=== PATIENT | female | born 1960 | race Caucasian/White ===

== ENCOUNTER 2016-12-25 14:00 | Inpatient (IN) | payer MEDICARE, MEDICAID ==
[~2016-12-25] VITALS: Ht 167.6 cm; Wt 56.1 kg
[2016-12-25 14:02] VITALS: BP 139/71; PULSE 66; RESP 18; O2SAT 100
--- NOTE | 2016-12-25 14:05 | ED.REPORT ---
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 Sister reports that the patient has been experiencing left leg pain for several months. Yesterday she developed decreased LOC, began leaning to the left, and has been unable to speak since. After getting out of the car upon returning home from an outing yesterday, the patient took several steps, then seemed to have difficulty ambulating and would not move any further, requiring the sister to move her manually. This morning, the leftward leaning seems to have worsened, and she began to have a recurrence of erratic limb movements, which have been present for some time now. Sister also reports decreased fluid intake for the past few days. She denies fever, SOB, vomiting, abdominal pain, history of seizures, and recent medication changes. It is impossible to obtain any history from the patient due to her underlying mental disability. Nursing Notes Stated Complaint: LEFT SIDED WEAKNESS Chief Complaint: Neuro Symptoms/ Deficits Nursing Notes Reviewed: Yes Allergies: Coded Allergies: No Known Allergies (Unverified , 12/25/16) General Time Seen by Provider: 14:00 Chief Complaint Other (Leaning Left) Hx Obtained From: Other family... (Sister) Arrived By: Ambulance Sudden in Onset?: No Onset Occurred: Yesterday Symptom Duration: Since onset Similar Sx Previous: No Past Medical History Past Medical History Notes: Medications: Levothyroxine 75mcg daily Lamotrigine 25mg tid (2 morning, 1 evening) Olanzapine 10mg daily Fluoxetine HCL 20mg daily Clonazepam 0.5mg up to tid Past Medical History Mentally disabled Blind Smoking History Unknown if Ever Smoker Social History Other Social History: Good social support Review of Systems Unable to Obtain ROS Mental status Physical Exam Initial Vital Signs Vital Signs (First) Date Time Temp Pulse Resp B/P Pulse Ox O2 Delivery O2 Flow Rate FiO2 12/25/16 14:02 36.6 66 18 139/71 100 Room Air Initial VS: Reviewed Neck: Supple, Non-tender, Full range of motion Extremities: Vascular intact, Neuro intact, No swelling, No tenderness Skin: Warm, Dry, No cyanosis General/Constitutional: Awake, Alert Head / Eyes: Normocephalic Respiratory / Chest: Breath sounds NL, Breath sounds = bilat, No respiratory distress, No rales, No rhonchi, No wheezing Cardiovascular: Heart rate NL, Regular rhythm, Heart sounds NL, Peripheral circulation NL NEUROLOGICAL: Unable to evaluate due to patient noncompliance. Interpretation & Diagnostics Lab Results Interpretation Result Diagram: 12/25/16 1420 12/25/16 1420 Test 12/25/16 14:20 12/25/16 17:00 White Blood Count 4.3th/mm3 (3.8-10.1) Red Blood Count 4.68mil/mm3 (3.90-5.20) Hemoglobin 13.6g/dL (12.0-15.6) Hematocrit 39.0% (35.0-46.0) Mean Corpuscular Volume 83.3fL (81-100) Mean Corpuscular Hemoglobin 29.1pg (27.0-35.0) Mean Corpuscular Hemoglobin Concent 34.9% (32.0-37.0) Red Cell Distribution Width 13.6% (12.3-15.4) Platelet Count 162bil/L (150-400) Neutrophils (%) (Auto) 55.6% (40-74) Lymphocytes (%) (Auto) 31.3% (14-46) Monocytes (%) (Auto) 11.3% (4-12) Eosinophils (%) (Auto) 1.4% (0-5) Basophils (%) (Auto) 0.2% (0-3) Sodium Level 143mEq/L (134-144) Potassium Level 4.2mEq/L (3.5-5.2) Chloride Level 104mEq/L (97-108) Carbon Dioxide Level 26mmol/L (18-29) Blood Urea Nitrogen 16mg/dL (6-24) Creatinine 0.89mg/dL (0.57-1.00) Estimat Glomerular Filtration Rate 94mL/min (>59) Glucose Level 94mg/dL (60-99) Calcium Level 9.4mg/dL (8.5-10.1) Total Bilirubin 0.3mg/dL (0.0-1.2) Aspartate Amino Transf (AST/SGOT) 31U/L (0-50) Alanine Aminotransferase (ALT/SGPT) 73U/L (0-32) Alkaline Phosphatase 103U/L (25-150) Total Protein 6.2g/dL (6.4-8.4) Albumin 3.8g/dL (3.4-5.0) Hold Chapman Top Tube Received (Received) Urine Color Yellow (YELLOW) Urine Appearance Clear (CLEAR,HAZY) Urine pH 5.5 (5.0-8.0) Urine Specific [place] 1.015 (1.003-1.035) Urine Protein Negativemg/dL (NEG,TRACE) Urine Glucose (UA) Negativemg/dL (NEGATIVE) Urine Ketones Negativemg/dL (NEGATIVE) Urine Occult Blood Small (NEGATIVE) Urine Nitrite Negative (NEGATIVE) Urine Bilirubin Negative (NEGATIVE) Urine Urobilinogen Normalmg/dL (NORMAL) Urine Leukocyte Esterase Negative (NEGATIVE) Urine RBC 0-2/hpf (0-2) Urine WBC 0-5/hpf (0-5) Urine Epithelial Cells None/hpf (NONE-MOD) Urine Crystals None seen (NONE SEEN) Urine Bacteria Few/hpf (NONE-FEW) Urine Hyaline Casts None/lpf (NONE) Urine Granular Casts None seen (NONE SEEN) Urine Waxy Casts None seen (NONE SEEN) Urine Red Blood Cell Casts None seen (NONE SEEN) Urine White Blood Cell Casts None seen (NONE SEEN) Urine Mucus None seen (None Seen) Urine Trichomonas None seen (NONE SEEN) Urine Yeast None (NONE SEEN) Urinalysis Comment None Urine Culture Reflexed Not indicated CT Head Interpretation IMPRESSION: 1. No acute intracranial findings. 2. Posterior fossa arachnoid cyst with mass effect on the adjacent cerebellar hemispheres. There is no parenchymal edema suggesting this is a chronic, slow-growing process. Dictated by: Elvie Ramos M.D. on 12/25/2016 at 16:53 Approved by: Elvie Ramos M.D. on 12/25/2016 at 16:57 Study: Head CT no contrast Interpretation / Wet Read by: Interpret - Radiologist Re-Eval/Medical Decision Med Decision/Clinical Course 56-year-old female history of developmental delay brought in by sister for acute change in her mental status since yesterday. Reportedly the patient is normally verbal at her baseline as been nonverbal since yesterday. Never had this before. Also with some weakness and falls over the last couple weeks. Also with some jerking movements last couple days. Sister reports these and never happened before. No recent medication changes. The patient is on clonazepam, olanzapine, Lamictal for behavioral disturbances. CT with arachnoid cyst no acute change per radiology. Negative for infection. Labs are stable. Given acute change in mental status and will admit for further workup. Possible MRI and EEG. Discussed with hospitalist who agrees with admission. Ordered a TSH and lactic per their request. Source of Hx: Old records Re-Evaluation/Progress #1: Time of Eval: 15:35 Re-Evaluation/Progress Note: Completed physical examination. Discussed need for further lab and imaging studies. Re-Evaluation/Progress #2: Time of Eval: 17:21 Re-Evaluation/Progress Note: Discussed lab and imaging results need for admission. Sister is amenable to the plan. All other questions addressed. Re-Evaluation/Progress #3: Time of Eval: 18:03 Re-Evaluation/Progress Note: CODE STATUS: DNAR/DNI Consultation : Referral / Consult Name: Sabino Shay Consulted With: Hospitalist Call Returned at: 17:57 Trailer Assembler: Agrees with eval, Agrees with plan, Accepts admit Counseled Regarding: Diagnosis, Lab results, Need for admission Discharge & Departure Impression: Primary Impression: Altered mental status Disposition: ADMITTED TO HOSPITAL Discharge Condition All VS Reviewed: Yes Condition: Stable Referrals: Xiao Juárez (PCP) Shadi Attestation Portions of this note were transcribed by Johnson Downey. I, Dr. Monique, personally performed the history, physical exam and medical decision-making; I reviewed and confirmed the accuracy of the information in the transcribed note. Signed by: Shadi Blackburn, 12/25/2016 at 18:00 copies to: Xiao Juárez Ben M MD Dec 25, 2016 14:05 JOHNSON DOWNEY Dec 25, 2016 14:08
[2016-12-25 14:30] LABS: BASOPHILS % (AUTO) 0.2 % (0-3); EOSINOPHILS % (AUTO) 1.4 % (0-5); MONOCYTES % (AUTO) 11.3 % (4-12); Mean Corpuscular Hemoglobin 29.1 pg (27.0-35.0); Mean Corpuscular Volume 83.3 fL (81-100); NEUTROPHILS % (AUTO) 55.6 % (40-74); Platelet Count 162 bil/L (150-400)
--- NOTE | 2016-12-25 16:59 | DRSVH ---
PROCEDURE: CT BRAIN WITHOUT CONTRAST ([id number]) INDICATIONS: LLE weakness TECHNIQUE: Noncontrast 4.5 mm thick angled axial sections acquired from the foramen magnum to the vertex, with c oronal reformats. COMPARISON: None. FINDINGS: Image quality: Excellent. CSF spaces: Basal cisterns are patent. There is a large posterior fossa arachnoid cyst. This splays the bilateral cerebellar hemispheres laterally. Ventricles are normal in size and shape. Brain: No midline shift. No intracranial masses or hemorrhage. [place]-white matter interface is norm al. Skull and face: Calvarium and visualized facial bones are intact, without suspicious lesions. 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 Sinuses: Visualized sinuses and mastoids are clear. IMPRESSION: 1. No acute intracranial findings. 2. Posterior fossa arachnoid cyst with mass effect on the adjacent cerebellar hemispheres. There is n o parenchymal edema suggesting this is a chronic, slow-growing process. Dictated by: Elvie Ramos M.D. on 12/25/2016 at 16:53 Approved by: Elvie Ramos M.D. on 12/25/2016 at 16:57
[2016-12-25 17:18] LABS: APPEARANCE,URINE CLEAR (CLEAR,HAZY); COLOR,URINE YELLOW (YELLOW); OCCULT BLOOD,URINE SMALL (NEGATIVE); PH,URINE 5.5 (5.0-8.0); UROBILINOGEN,URINE NORMAL (NORMAL)
[2016-12-25] MEDS ORDERED: Alum-Mag Hydrox-Simeth 30 mL Suspension PO PRN ×2 (18:00→18:10)
[2016-12-25] MEDS ORDERED: Ondansetron 2 mg/mL 2 mL Inj IVPUSH PRN ×2 (18:00→18:10)
[2016-12-25] MEDS ORDERED: Polyethylene Glycol (PEG) 17 Gm Powder PO PRN (18:10)
--- NOTE | 2016-12-25 18:20 | PCM.HPMED ---
Subjective Date of Service Dec 25, 2016 Primary Provider: Admitting Physician: Primary Care Physician: Xiao Juárez Attending Physician: Chief Complaint: Altered mentation, as per daughter. History of Present Illness: 56 YO F with profound mental disabilities in addition to blindness presenting from home accompanied by sister for an acute on chornic delcine in functioning. Sister notes for last few months pt has demonstrated more jerky/spastic motions of arms, perhaps more difficulties with ambulation. She has brought this up to PCP on numerous occasions, but generally pt is not as symptomatic in doctors office. There has kenneth neurology consult placed, but this is still pending, not scheduled until February which was earliest date. In recent days the changes have become more pronouced. Pt having progressive difficulties with ambulation, this morning finally unable to walk down steps. Arms more spastic. Pt used to be much more verbally expressive, sister notes now if seems she is trying to say something, but is unable. She also appears more lethargic and sedate. She had been drinking less water/fluids as well, perhaps for past few weeks, though food intake is still good. Sister denies any evident chills/sweat, no reported fever. Pt stooling harder than usual but not constipated. Voiding normally, though maybe more dark. Review of Systems: 10 point ROS was conducted and negative excepting positives and negatives included in above HPI. Allergies Coded Allergies: No Known Allergies (Unverified , 12/25/16) Home Medications Levothyroxine 75mcg daily Lamotrigine 25mg tid (2 morning, 1 evening) Olanzapine 10mg daily Fluoxetine HCL 20mg daily Clonazepam 0.5mg up to tid PMH Mentally disabled Blind Surgical History Sister denies Family History Father has Alzhiemers Extended family with Parkinson disease. Social History Hx Alcohol Use: No Hx Substance Use: No Hx Tobacco Use: No Smoking Status: Never Smoker Living Arrangement: with Family Exam Vital Signs Vital Sign - Last Date Time Temp Pulse Resp B/P Pulse Ox O2 Delivery O2 Flow Rate FiO2 12/25/16 14:02 36.6 66 18 139/71 100 Room Air General: Alert, Moderate Distress, Other (Responsive to soft touch, aware of verbal stimulation. NO evident distress. Speach not discerable. ) Eyes: Other (BLindness B/L. NO tracking of vision/pupils dialated. ) Mouth: Mucous Membr Moist/[place] Chest & Lungs: Clear to auscultation & percussion Cardiovascular: Regular Rate/Rhythm Pulses: NL carotid, radial, femoral, DP, PT Extremities: No cyanosis/clubbing/edma bilat Neurological: Other (Face symetric. Peroid jerking/flexing motions of B/L upper extremities noted intermitently during exam. ) Lab and Diagnostics Result Diagram: 12/25/16 1420 12/25/16 1420 Assessment & Plan 56 YO mental disabled female, baseline unknown, BIB sister after reported decline in mentation leading her to be essentially nonverbal and minimal responses when previously she has been more alter. Placed on observation for further evaluation. 1. Impaired mentation/Altered mental status - Etiology unclear, medical history not entirely known, underlying cause of pt' s chronic handicap is not clear. - CT obtained in ER noted not apparent acute cause, though was significant for cyst, which appeared slow growing. Urine and lab studies unremarkable. - Studies pending: MRI to consider other cerebral etiology, EEG to evaluate for seizures, Lamictal level also ordered in addition to routine lab studies - May consider Neurology consult based on resulted of above studies. - IVF started due to impaired PO intake recently as per sister. 2. Mental impairment/mood disorder: - Continue home medications at this time. - Lamictal level pending, may consider dosage adjustment accordingly. 3. BLindness/eye condition - Continue out patient therapy/medications. Pain Evaluation: Adequate Pain Control GI Prophylaxis: Not indicated VTE Mechanical Devices: Anti-Embolic stockings Resuscitation Status: DNR/DNI:Do Not Resuscitate/Intubate Time spent 55 minutes Sabino Shay DO Dec 25, 2016 18:20
[2016-12-25 18:23] VITALS: BP 147/66; PULSE 65; RESP 16; O2SAT 96
[2016-12-25 19:48] VITALS: BP 147/66; PULSE 65; RESP 16; O2SAT 96
[2016-12-25 19:49] VITALS: BP 112/62; PULSE 72; RESP 18; O2SAT 96
[2016-12-25] MEDS ORDERED: FLUO20CA25 PO (20:19)
[2016-12-25] MEDS ORDERED: LEVO75TA4 PO (20:19)
[2016-12-25] MEDS ORDERED: LAMO25TA PO ×2 (20:19)
[2016-12-25] MEDS ORDERED: OLAN10TA19 PO (20:19)
[2016-12-25] MEDS ORDERED: BRIM5DRO RIGHT_EYE (20:19)
[2016-12-25] MEDS ORDERED: KLO5T PO (20:19)
[2016-12-25] MEDS ORDERED: DORZ10DR18 RIGHT_EYE (20:19)
[2016-12-25] MEDS ORDERED: LATA2.5D6 RIGHT_EYE (20:19)
[2016-12-25] MEDS ORDERED: NEO/3.5O17 LEFT_EYE (20:19)
[2016-12-25] MEDS: 0.9% Sodium Chloride 1,000 ML IV SCH (20:49)
[2016-12-25] MEDS: Dorzolamide 2% 10 mL Ophthalmic Solution RIGHT_EYE SCH (21:00)
[2016-12-25] MEDS: Brimonidine-Timolol 5 mL Ophthalmic Solution RIGHT_EYE SCH (21:00)
[2016-12-25] MEDS: lamoTRIgine 25 mg Tablet PO SCH ×2 (21:00→23:46)
--- NOTE | 2016-12-25 23:45 | NUR ---
Admit Pt arrived to [facility] room 1028 at 1945 from ER. Pt transferred from bed to [facility] via slider board. Pt is having severe generalized weakness and mostly nonverbal. Pt does answer to sister sometimes using 1-2 word phrases. Pt is mentally disabled and is dependent baseline. Pt did pass ED swallow test, per report and MD ordered dysphagia [facility] soft diet. MRI was cancelled until the next morning since pt unable to lay still for 20 min and "has been through too much trauma for one day" per sister. MD aware. IV Fluids started NS at 100 ml/hr. Pt is on RA with no s/s of pain. Pt is blind in both eyes and requires gentle touch and slow movements as to not scare pt. Pt did get up to BSC with 2 Person max assist and gait belt, basically having to lift the pt onto the BSC as she is not moving legs or following commands well. Pt not cooperative with neuro assessment as she does not want to listen to commands. Brief on just in case. Bed alarm on for safety, pt did require sitter while sisters left to get stuff from home. Sisters are now in room with patient. Attempted, with sisters help, to give pt night time meds however she would not cooperate. Pt now sleeping. Continue close monitoring.
[2016-12-25] MEDS: DEXAMETHASONE LEFT_EYE SCH (23:49)
[2016-12-25] MEDS: NEOMYCIN LEFT_EYE SCH (23:49)
[2016-12-25] MEDS: POLYMYXIN B LEFT_EYE SCH (23:49)
[2016-12-26 00:33] VITALS: BP 164/77; PULSE 61; RESP 16; O2SAT 99
[2016-12-26 06:00] VITALS: BP 174/84; PULSE 58; RESP 16; O2SAT 98
[2016-12-26] MEDS: 0.9% Sodium Chloride 1,000 ML IV SCH ×2 (06:49→16:48)
[2016-12-26 06:59] LABS: BASOPHILS % (AUTO) 0.3 % (0-3); MONOCYTES % (AUTO) 9.6 % (4-12); Mean Corpuscular Hemoglobin 29.5 pg (27.0-35.0); NEUTROPHILS % (AUTO) 37.7 % (40-74); Platelet Count 147 bil/L (150-400)
[2016-12-26] MEDS: lamoTRIgine 25 mg Tablet PO SCH ×2 (09:10→21:18)
[2016-12-26] MEDS: Brimonidine-Timolol 5 mL Ophthalmic Solution RIGHT_EYE SCH (09:11)
[2016-12-26] MEDS: Dorzolamide 2% 10 mL Ophthalmic Solution RIGHT_EYE SCH (09:11)
--- NOTE | 2016-12-26 11:41 | NUR ---
Case Managment- LACEY explained and signed by sister/DPOA at 1010. Copy given to sister. Orginal placed in chart. Shria MCCARTHY/ RN
[2016-12-26] MEDS ORDERED: LORazepam 1 mg Tablet PO ONE (11:55)
--- NOTE | 2016-12-26 12:02 | PCM.PNMED ---
Subjective Date of Service Dec 26, 2016 Subjective Pt stable overnight. Now eating/drinking more than previous. Sister notes still difficult to ambulate, doesn't believe her gait is stable. NO other overnight events. condition appears stable but not improved to baseline. Exam Vital Signs Vital Sign - Last Date Time Temp Pulse Resp B/P Pulse Ox O2 Delivery O2 Flow Rate FiO2 12/26/16 06:00 36.4 58 16 174/84 98 Room Air Intake and Output 12/25/16 12/25/16 12/26/16 Cumulative From/Thru 15:00 23:00 07:00 12/25/16 14:02 - 12/26/16 06:40 Intake Total 325 ml 325 ml Output Total 350 ml 350 ml Balance -25 ml -25 ml Intake Oral 325 ml 325 ml Output Urine Total 350 ml 350 ml # Bowel Movements 0 0 Exam General: Alert, In no apparent distress. Responsive to soft touch, aware of verbal stimulation. NO evident distress. Speech not discernable. Eyes: (+)Blindness Mouth: Mucous Membranes Moist/[place] Cardiovascular: Regular Rate/Rhythm Extremities: No cyanosis/clubbing/edma bilat Neurological: No cogwheeling rigity noted, no resting tremor. Face symetric. No jerking/flexion of arms as noted on admission noted during exam. IVs and Medications Medications Reviewed: Medications were reviewed in detail Lab and Diagnostics Result Diagram: 12/26/16 0650 12/26/16 0650 Assessment & Plan 56 YO mental disabled female, baseline unknown, BIB sister after reported decline in mentation leading her to be essentially nonverbal and minimal responses when previously she has been more alter. Placed on observation for further evaluation. 1. Impaired mentation/Altered mental status - Etiology unclear, medical history not entirely known, underlying cause of pt' s chronic handicap is not clear. - CT obtained in ER noted not apparent acute cause, though was significant for cyst, which appeared slow growing. Urine and lab studies unremarkable. - Studies pending: MRI, EEG to evaluate for seizures, Lamictal level also ordered in addition to routine lab studies - May consider Neurology consult based on resulted of above studies. - IVF started due to impaired PO intake recently as per sister. - Pt may require more intensive home services for DC given sister apparently being only screen maker and patient's evident disability. PT consulted for further evaluation. 2. Mental impairment/mood disorder: - Continue home medications at this time. - Lamictal level pending, may consider dosage adjustment accordingly. 3. BLindness/eye condition - Continue out patient therapy/medications. Pain Evaluation: Adequate Pain Control GI Prophylaxis: Not indicated VTE Mechanical Devices: Anti-Embolic stockings Resuscitation Status: DNR/DNI:Do Not Resuscitate/Intubate Time spent 30 minutes Sabino Shay DO Dec 26, 2016 12:02
--- NOTE | 2016-12-26 13:14 | DRSVH ---
PROCEDURE: MRI BRAIN WITHOUT CONTRAST ([id number]) INDICATIONS: delcinling function/altered mentation TECHNIQUE: Non-contrast axial T1 spin echo, axial T2 fast spin echo, sagittal and axial FLAIR, coronal T2 fast s pin echo, axial gradient echo, axial diffusion and ADC through the brain. COMPARISON: [facility], CT, CT BRAIN WO CON, 12/25/2016, 16:19. FINDINGS: Image quality: Limited examination due to significant motion artifacts. CSF spaces: Ventricles appear symmetric in size and shape. Basal cisterns are patent. No extra-axi al fluid collections. There is a 2.8 x 5.0 x 6.2 cm mass in the posterior fossa at midline, which de monstrates identical MR signal to CSF, compatible with a large arachnoid cyst. The there is mass effe ct to cerebellum. Brain: No intracranial bleeds or mass effects. There is mild cerebral volume loss for age. There a re mild periventricular and deep white matter chronic small vessel ischemic changes. Brainstem appea rs normal. Diffusion-weighted images show no acute ischemic insults. No chronic ischemic insults. Normal intravascular flow voids are present. Skull and face: Calvarial bone marrow is normal in signal. Orbits are normal. Sinuses: Sinuses and mastoids are clear. IMPRESSION: 1. No acute intracranial abnormalities. 2. Mild cerebral volume loss and chronic microvascular ischemic changes. 3. A large arachnoid cyst in the posterior fossa at midline with mass effect to cerebellum. 4. Limited examination due to significant motion artifacts. Dictated by: Yanick Gupta M.D. on 12/26/2016 at 13:07 Approved by: Yanick Gupta M.D. on 12/26/2016 at 13:13
--- NOTE | 2016-12-26 14:29 | NUR ---
Social Work - Initial Assessment: Data: EMR reviewed. Pt is a 56 y/o female who was admitted for left sided weakness per her H&P. Pt's insurance is Medicare and [facility] Supplemental. Her PCP is MARICRUZ Salgado. JESSICA met with Pt and sister and explained role. Pt does not have nursing home care insurance or VA benefits. Pt has no history of SNF services. Pt has previously used [facility]. Pt resides at home with her sister. Pt does not drive and does not use any DME. SW discussed DPOA/ advanced directive, sister informed SW that she is Pt's guardian. SW requested sister to bring in copy of paperwork. Sister concerned about Pt's level of functioning now. Sister declines to have Pt go to SNF. Pt sister is her RAZ caregiver and her onsite case manager name is Deb England ([phone]). SW explained that call could be made to case picker for assistance increasing Pt's hours. Sister states she would need DME for home. SW provided sister with private pay quotes for wheelchair, hospital bed, bedside commode, and bed rails. JESSICA spoke with pt's case picker in person who confirms that she will work on getting pt approved for more hours. JESSICA spoke with Tyree from [facility] who confirms they are open with pt for nursing PT and OT. Pt will need resume orders at discharge. Sister to provide transportation home. SW will continue to follow. Assessment:Pt who is blind and has 24/7 care at home. Plan: Pt to discharge home with sister when medically stable. Pt will need to resume HH through [facility] for nursing PT/OT. Private pay quotes for DME have been provided to sister. JESSICA to follow up for assistance. NICK Dorsey MSW Addendum: 12/26/16 at 1442 by TAMEKA SCOTT Amended: Links added.
[2016-12-26 15:48] VITALS: BP 153/89; PULSE 69; RESP 18; O2SAT 97
--- NOTE | 2016-12-26 16:19 | NUR ---
activity sister/caregiver, Gianna, says pt seems more back to her normal self after receiving Ativan for procedures. She said as in, less "jerking" and grunting, and more verbal. She is still weaker than normal, takes 1-2 assist for transfers, but even that has improved
--- NOTE | 2016-12-26 18:45 | NUR ---
Case Management: IMM explained to patient's sisters at 1810, all questions answered. Gianna (ALEJANDRO) signed, original placed in chart, Gianna given a copy. Nelli Pan RN
[2016-12-26 20:29] VITALS: BP 164/84; PULSE 72; RESP 18; O2SAT 99
[2016-12-26] MEDS: POLYMYXIN B LEFT_EYE SCH (21:18)
[2016-12-26] MEDS: NEOMYCIN LEFT_EYE SCH (21:18)
[2016-12-26] MEDS: DEXAMETHASONE LEFT_EYE SCH (21:18)
--- NOTE | 2016-12-27 04:36 | NUR ---
Cognition / agitation Pt showing improved cognition; able to cooperate with assessment requests, assisting with transfer to BSC, verbalizing appropriate requests. However, pt became agitated at HS, did not want IV, attempted to exit bed; unable to reason with pt related to baseline functioning. Sitter brought in for safety in night to allow family members to get some much needed rest, pt cooperative with care and observed sleeping through remainder of night.
[2016-12-27 04:49] VITALS: BP 143/67; PULSE 54; RESP 16; O2SAT 98
[2016-12-27] MEDS: lamoTRIgine 25 mg Tablet PO SCH ×2 (09:05→20:10)
[2016-12-27] MEDS: Dorzolamide 2% 10 mL Ophthalmic Solution RIGHT_EYE SCH (09:07)
--- NOTE | 2016-12-27 09:18 | PROCED ---
[address] [address] EEG PATIENT: CASA HOLM I : 1960 MR#: [id number] ADMIT: 12/25/2016 JOB ID: [id number] DATE: 12/27/2016 HISTORY: The patient is a 56-year-old woman with altered mental status. TECHNICAL DESCRIPTION: This digital EEG was recorded using 25 scalp and ear, and two EKG electrodes. It was reviewed in bipolar and referential montages following reformatting in the 10-20 [employer] Electrode Placement System. During the recording, the patient was noted to be restless. There was abundant myogenic and movement artifact. There was a prominent beta bilaterally throughout this recording. Glimpses were appreciated of an 8 hertz 10-20 microvolt background activity that did appear to attenuate bilaterally with eye opening. The rest of the background was composed of low voltage faster frequencies. This is a limited study due to abundant myogenic and movement artifact. There are no apparent epileptiform activity abnormalities noted. There were no seizures noted. There were no localized abnormalities noted. Hyperventilation was not performed. Photic stimulation was not performed and the patient is blind. No sleep was appreciated. The EKG rhythm strip revealed a heart rate of 60-80 beats per minute with no apparent arrhythmias. IMPRESSION: This EEG performed in the awake state is limited secondary to myogenic and movement artifact. However, it is within normal limits with that caveat kept in mind. A normal EEG does not exclude the possibility of the diagnosis of seizure disorder. Clinical correlation is advised. Ideally a repeat study capturing the transition to and from sleep states and sleep states may be helpful. Clinical correlation is advised.
[2016-12-27] MEDS: 0.9% Sodium Chloride 1,000 ML IV SCH (12:16)
[2016-12-27 13:15] VITALS: BP 108/66; PULSE 71; RESP 16; O2SAT 99
--- NOTE | 2016-12-27 13:35 | NUR ---
Social Work: Continued Discharge Planning Data & Assessment: workers compensation claims supervisor attempted to call patient's RAZ CM, Deb England [phone], to discuss possible increase in patient's hours, but there was no answer. SW will continue to trya and contact Ms. England and assist patient with discharge planning. Plan: Patient is likely to discharge home with HH and RAZ worker in the home. SW will continue to try and contact patient's RAZ worker. SW will continue to follow and assist patient throughout stay. Jie Altamirano LMSW, ACM
--- NOTE | 2016-12-27 16:12 | NUR ---
activity sister/caregiver, Gianna, feels that pt is almost back to her normal activity/behavior now. She was able to walk her in the snyder with a walker, tolerated well. She is no longer making spastic movements with her arms. She is still occasionally making the grunting noise/jutting her chin which is a recent new behavior. Her speech is more frequent and clearer
--- NOTE | 2016-12-27 16:15 | NUR ---
Social Work: Brief Note News Director received a copy of patient's Letter of Guardianship with Madeleine Gamino listed as the Corine Juarez's guardian. SW placed a irrigationist designer the document and placed it into the patient's paper chart. Jie Altamirano, TOMMY, ACM
--- NOTE | 2016-12-27 16:48 | PCM.PNMED ---
Subjective Date of Service Dec 27, 2016 Subjective Patient essentially stable today clinically no acute changes. Perhaps drinking a bit more than previous. Overall condition remains generally impaired relative to a few months prior. Exam Vital Signs Vital Sign - Last Date Time Temp Pulse Resp B/P Pulse Ox O2 Delivery O2 Flow Rate FiO2 12/27/16 13:15 36.5 71 16 108/66 99 Room Air Intake and Output 12/26/16 12/26/16 12/27/16 Cumulative From/Thru 15:00 23:00 07:00 12/25/16 14:02 - 12/27/16 06:25 Intake Total 890 ml 1480 ml 1779 ml 4474 ml Output Total 300 ml 700 ml 1350 ml Balance 890 ml 1180 ml 1079 ml 3124 ml Intake Oral 1480 ml 270 ml 2075 ml IV Total 890 ml 1509 ml 2399 ml Output Urine Total 300 ml 700 ml 1350 ml # Voids 3 3 # Bowel Movements 0 0 Exam General: Alert, In no apparent distress. Responsive to soft touch, aware of verbal stimulation. NO evident distress. Speech not discernable. Eyes: (+)Blindness Mouth: Mucous Membranes Moist/Kraemer Extremities: No cyanosis/clubbing/edma bilat. mild swelling of hands more pronounced in dorsal aspect and containing iv. Neurological: No cogwheeling rigity noted, no resting tremor. Face symetric. No jerking/flexion of arms as noted on admission noted during exam. IVs and Medications Medications Reviewed: Medications were reviewed in detail Lab and Diagnostics Result Diagram: 12/26/16 0650 12/26/16 0650 Assessment & Plan 56 YO mental disabled female, baseline unknown, BIB sister after reported decline in mentation leading her to be essentially nonverbal and minimal responses when previously she has been more alter. Placed on observation for further evaluation. 1. Impaired mentation/Altered mental status - Etiology unclear, medical history not entirely known, underlying cause of pt' s chronic handicap is not clear. - CT obtained in ER noted not apparent acute cause, though was significant for cyst, which appeared slow growing. Urine and lab studies unremarkable. - Studies MRI confirmed a large subarachnoid hemorrhage with possible compression on cerebellar region of brain, EEG did not demonstrate evidence of seizure activity but could not conclusively rule out either due to patient motion. , Lamictal level also ordered in addition to routine lab studies -Neurology is consulted plan see patient this evening or tomorrow morning - IVF discontinued as patient is taking a good amount of fluid by mouth. - Pt may require more intensive home services for DC given sister apparently being only band master and patient's evident disability. PT consulted for further evaluation. Social work has been working towards getting more services and home 2. Arachnoid cyst - As noted above cyst is compressing on cerebellar region may be source of patient's progressive decline over recent weeks to months - Discussed this case with Dr. crane, who will see patient personally, believes she would benefit from neurosurgical consultation promptly following discharge. 3. Mental impairment/mood disorder: - Continue home medications at this time. - Lamictal level pending, may consider dosage adjustment accordingly. 4. BLindness/eye condition - Continue out patient therapy/medications. Disposition pending further evaluation from neurology and establishment of increased amount of home health support so patient can be adequately cared for at home while further evaluation and treatment can be provided. Likely discharge in a.m. following neurology evaluation. Pain Evaluation: Adequate Pain Control GI Prophylaxis: Not indicated VTE Mechanical Devices: Anti-Embolic stockings Resuscitation Status: DNR/DNI:Do Not Resuscitate/Intubate Time spent 30 minutes Sabino Shay DO Dec 27, 2016 16:48
[2016-12-27] MEDS: NEOMYCIN LEFT_EYE SCH (20:11)
[2016-12-27] MEDS: POLYMYXIN B LEFT_EYE SCH (20:11)
[2016-12-27] MEDS: DEXAMETHASONE LEFT_EYE SCH (20:11)
[2016-12-27 20:36] VITALS: BP 131/70; PULSE 68; RESP 16; O2SAT 98
--- NOTE | 2016-12-28 03:03 | NUR ---
Sleep At beginning of shift patient appeared somewhat restless. Family states that it took some time for the patient to fall asleep, but once she did she has been sleeping very well throughout the night. Patient has been able to receive adequate rest and sleep so far this evening. Will continue to monitor, and continue Q1 hour checks.
[2016-12-28 05:28] VITALS: BP 142/81; PULSE 56; RESP 16; O2SAT 97
[2016-12-28] MEDS ORDERED: levETIRAcetam 500 mg Tablet PO SCH (08:30)
[2016-12-28] MEDS ORDERED: levETIRAcetam Inj 1,000 MG in IV Premix 1 EACH IV ONE (08:35)
[2016-12-28] MEDS: lamoTRIgine 25 mg Tablet PO SCH ×2 (09:12→21:18)
[2016-12-28] MEDS: Brimonidine-Timolol 5 mL Ophthalmic Solution RIGHT_EYE SCH (09:19)
--- NOTE | 2016-12-28 10:52 | PCM.PNMED ---
Subjective Date of Service Dec 28, 2016 Subjective No complaints. Sister feels she is much better than when she was admitted although not quite back to baseline. Exam Vital Signs Vital Sign - Last Date Time Temp Pulse Resp B/P Pulse Ox O2 Delivery O2 Flow Rate FiO2 12/28/16 05:28 36.8 56 16 142/81 97 Room Air Intake and Output 12/27/16 12/27/16 12/28/16 Cumulative From/Thru 15:00 23:00 07:00 12/25/16 14:02 - 12/28/16 06:33 Intake Total 1400 ml 250 ml 6124 ml Output Total 1350 ml Balance 1400 ml 250 ml 4774 ml Intake Oral 1400 ml 250 ml 3725 ml IV Total 2399 ml Output Urine Total 1350 ml # Voids 5 4 12 # Bowel Movements 1 0 1 Exam General: Awake, shaking head no constantly, not following simple commands such as take a deep breath, did not speak to me but family reports she does speak occasionally to them. Heart: Regular Lungs: Clear anteriorly and laterally Abdomen: Soft, non-tender Extremities: No pedal edema IVs and Medications Medications Reviewed: Medications were reviewed in detail Lab and Diagnostics Result Diagram: 12/26/16 0650 12/26/16 0650 Assessment & Plan 56 YO mental disabled female, baseline unknown, BIB sister after reported decline in mentation leading her to be essentially nonverbal and minimal responses when previously she has been more alert. 1. Impaired mentation/Altered mental status - Etiology unclear, medical history not entirely known, underlying cause of pt' s chronic handicap is not clear. - CT obtained in ER noted not apparent acute cause, though was significant for cyst, which appeared slow growing. Urine and lab studies unremarkable. - Studies MRI confirmed a large subarachnoid hemorrhage with possible compression on cerebellar region of brain, EEG did not demonstrate evidence of seizure activity but could not conclusively rule out either due to patient motion. , Lamictal level also ordered in addition to routine lab studies -Neurology has been done according to the patient's family although there is no note yet. They say he is starting her on a new seizure medication before trying steroids. - IVF discontinued as patient is taking a good amount of fluid by mouth. - Pt may require more intensive home services for DC given sister apparently being only animal caretaker supervisor and patient's evident disability. PT consulted for further evaluation. Social work has been working towards getting more services and home 2. Arachnoid cyst - As noted above cyst is compressing on cerebellar region may be source of patient's progressive decline over recent weeks to months - Neurology consult with Dr. Miller as noted above, note pending. 3. Mental impairment/mood disorder: - Continue home medications at this time. - Lamictal level pending, may consider dosage adjustment accordingly. 4. BLindness/eye condition - Continue out patient therapy/medications. Disposition pending further evaluation from neurology and establishment of increased amount of home health support so patient can be adequately cared for at home while further evaluation and treatment can be provided. According to the family the neurologist wants to keep her to observe response to new seizure medication, his plans for discharge timing are unclear. GI Prophylaxis: Not indicated VTE Mechanical Devices: Intermittant Pneumatic CD Resuscitation Status: DNR/DNI:Do Not Resuscitate/Intubate Tracy Gerard MD Dec 28, 2016 10:52
[2016-12-28 11:00] VITALS: BP 126/68; PULSE 62; RESP 17; O2SAT 92
[2016-12-28 18:01] VITALS: BP 146/80; PULSE 69; RESP 19; O2SAT 97
--- NOTE | 2016-12-28 18:25 | NUR ---
Mentation, Activity Patient family states that patient mentation much improved from admission. Patient agreeable to take oral pain medications, occasionally asks simple questions. Patient family assisting with feeding and ADLs. Care is ongoing.
--- NOTE | 2016-12-28 20:52 | CONS ---
[address] [address] CONSULTATION REPORT PATIENT: CASA HOLM I : 1960 MR#: [id number] ADMIT: 12/25/2016 JOB ID: [id number] NEUROLOGY CONSULTATION: DATE OF SERVICE: REQUESTING PROVIDER: Sabino Shay MD CHIEF COMPLAINT: Altered mental status with transient episodes of shaking and staring. HISTORY OF PRESENTING ILLNESS: This patient is a pleasant, 56-year-old woman with profound mental disabilities in addition to blindness, who follows closely with her primary care provider, Xiao Juárez PA-C, who presented to the emergency department after new onset of episodes of transient, less than 1 minute staring spells, confusion, expressive aphasia, and jerking movements of her extremities; primarily her upper extremities. She is cared for by one of her sisters. Her sister Melia did note that over the past few months there has been the gradual onset of these new neurologic symptoms with transient myoclonic type movements of extremities; principally the bilateral upper extremities and more difficulty with ambulation. They were scheduled to see me in February. The changes were noted to be more pronounced recently and she was brought to the emergency department. There has been a gradual decline in activities of daily living. Review of systems was performed with the historian being her sister Melia and her Ra. Reportedly no fevers, chills, nausea, vomiting. ALLERGIES: No known drug allergies. HOME MEDICATIONS: Include: 1. Levothyroxine 75 mcg daily. 2. Lamotrigine 25 mg t.i.d. two in the morning, one the evening. 3. Olanzapine 10 mg at night. 4. Fluoxetine 20 mg daily. 5. Clonazepam p.r.n. 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 She is blind in both eyes. PAST SURGICAL HISTORY: No past surgical history. FAMILY HISTORY: A family history of Alzheimer's and Parkinson disease. SOCIAL HISTORY: Lives with family. No tobacco, alcohol or drugs. LABORATORY AND IMAGING DATA: When she came in were as follows: WBC of 4.3, hemoglobin of 13.6, hematocrit 39, platelets 162. Sodium 143, potassium 4.2, chloride was 104, bicarb 26, BUN 16, creatinine 0.89, and glucose of 94. I did review her imaging studies in detail. The first CT of the head without contrast demonstrated no acute intracranial findings. Posterior fossa arachnoid cyst with mass effect on the adjacent cerebellar hemispheres was noted. There was no parenchymal edema and this is suggestive therefore of a chronic slow-growing process. I did review her magnetic resonance imaging study of the brain which demonstrated 2.8 x 5.0 x 6.2 cm mass in the posterior fossa , which demonstrated identical magnetic resonance signal to cerebrospinal fluid compatible with a large arachnoid cyst. There was mass effect noted to the cerebellum. When compared again to the CT, it appears that this has been a chronic slow growing process. No hemorrhage was noted. No acute intracranial abnormalities. Mild cerebral volume loss and chronic microvascular ischemic changes. This study was limited though due to significant motion artifact. I did review her electroencephalogram as well which was limited secondary to myogenic and movement artifact; however did not reveal any epileptiform activity. I did review her laboratory studies from yesterday which demonstrated a WBC of 3.4 hemoglobin 12.9, hematocrit 36.7, and platelets of 147. Chemistries: Sodium 141, potassium 4.3, chloride was 104, bicarb 26, BUN was 16, creatinine was 0.88. Glucose was 83. The history was obtained by from her sister Melia as well as her Ra. ALT was 62, total protein 5.5. TSH was 2.670. Toxicology: Lamotrigine nondetected. Urinalysis: Urine color was yellow, clear, small occult blood, no epithelial cells, few bacteria. PHYSICAL EXAMINATION: Temperature 36.5, pulse of 69, respiratory rate of 19, blood pressure 146/80, pulse oximetry 97% on room air. She is awake, alert, and reactive. Speech does appear dysarthric. She did not follow complex commands. She did interact with family members. Face appeared symmetrical. Facial sensation could not be assessed. Tongue was midline. She is blind in both eyes. No blink to threat. However she did squeeze her eyes tightly closed when I attempted to open both eyelids to better assess her pupils. Face appears symmetrical. She does localize to voice. Tongue appeared midline. Motor: She was moving all four extremities symmetrically. Sensory: She did withdraw to noxious stimuli throughout. Deep tendon reflexes were increased throughout and there was nonsustained clonus at the left ankle. Plantars were extensor bilaterally. Coordination could not be assessed. Gait was deferred. IMPRESSION: 1. Static encephalopathy. 2. Arachnoid cyst likely chronic and slow growing with mass effect on the cerebellum and cortex. 3. Transient episodes of staring, speech arrest and myoclonic type movements that is. These are strongly suspicious for an ictal etiology. RECOMMENDATIONS: Loading dose of Keppra 1000 mg IV, then continue Keppra 500 mg twice daily. I do recommend a referral to Neurosurgery at the [facility] or [facility] for further evaluation. Please also coordinate such that both the computed tomography scan of her head and magnetic resonance imaging study of her brain are also available for viewing by Neurosurgery at the [facility] or [facility]. We did discuss in detail; that is with the patient's sister Melia and her Ra, management. Reviewed side effects of Keppra in detail. She was noted to be mildly sedated after loading dose. She has also noted some degree of constipation and appeared to have a mild degree of abdominal distention. Family members also noted a mild degree of reddening which was transient of her cheeks and nose which has now resolved. No rash was noted. I did discuss as well the importance of an evaluation by Neurosurgery; however given the clinical history and examination, I do not believe that this arachnoid cyst necessitates emergent surgical intervention and/or steroid use at this point. It appears to be chronic and slow growing. If there is any sudden neurologic change, I do recommend a stat computed tomography scan of her head without contrast. I do recommend seizure and fall precautions. I discussed this in detail with her sister Melia and Melia's , Ra. I will also attempt to contact Xiao Juárez, and communicate with her and coordinate management. I do recommend that she follow up with Xiao Juárez in one week after discharge as well as to be seen by Neurosurgery and to follow up with me at some point in the Neurology Clinic after being seen by Neurosurgery within the next month or two. Neurosurgeons at the [facility] include Dr. Pakrer, and at [facility], Dr. Chanel. Thank you again, Dr. Shay, for allowing me to participate in the care of your patient. Please feel free to contact me with any questions or concerns. We discussed management in detail. Certainly the slow growing arachnoid cyst could contribute to the development of the above noted transient neurologic events suspicious for ictal events as well as the gradual onset of mental status changes, and therefore based on this, I do recommend that she be seen by Neurosurgery. However based on the appearance of the arachnoid cyst, it appears to be chronic and slow growing, and although it demonstrates mass effect, it is unlikely that steroids are indicated in this situation given the chronic slow growing nature of the cyst.
[2016-12-28 21:10] VITALS: BP 138/82; PULSE 69; RESP 18; O2SAT 99
[2016-12-28] MEDS: levETIRAcetam 500 mg Tablet PO SCH (21:18)
[2016-12-28] MEDS: DEXAMETHASONE LEFT_EYE SCH (21:20)
[2016-12-28] MEDS: NEOMYCIN LEFT_EYE SCH (21:20)
[2016-12-28] MEDS: POLYMYXIN B LEFT_EYE SCH (21:20)
[2016-12-29 01:15] VITALS: BP 155/99; PULSE 53; RESP 16; O2SAT 96
--- NOTE | 2016-12-29 01:26 | NUR ---
Ambulation This evening patient ambulated hallway multiples times with family members. FWW and gait belt were used. Patient tolerated activity well, but did get tired after walking up and down the hallway multiple times. Patient is currently sleeping and appears comfortable. Will continue to monitor, and continue Q1 hour checks.
--- NOTE | 2016-12-29 06:03 | NUR ---
Somnolence This morning the patient had a difficult time with waking up. Pts family states that she is not usually this difficult to wake up in the morning. Was able to get patient up to the B[facility] with SBA and FWW, and give medication in pudding, but still appeared drowsy and somnolent. BP 149/80 HR 67 O2 98% on RA. Will share this with oncoming shift, and will continue to monitor.
[2016-12-29 06:15] VITALS: BP 149/80; PULSE 67; RESP 16; O2SAT 98
[2016-12-29] MEDS: levETIRAcetam 500 mg Tablet PO SCH (08:57)
[2016-12-29] MEDS: lamoTRIgine 25 mg Tablet PO SCH ×2 (08:57→20:08)
[2016-12-29] MEDS: Dorzolamide 2% 10 mL Ophthalmic Solution RIGHT_EYE SCH (08:58)
--- NOTE | 2016-12-29 11:18 | PCM.DIMED ---
Discharge Instructions Date of Service Dec 29, 2016 Dates of Hospitalization Dec 25, 2016 at 18:19 Discharge Diagnosis Discharge Diagnosis Static encephalopathy. Arachnoid cyst likely chronic and slow growing with mass effect on the cerebellum and cortex. Transient episodes of staring, speech arrest and myoclonic type movements that is. These are strongly suspicious for an ictal etiology Mental impairment/mood disorder Diet No restrictions Activity No restrictions Patient Instructions Follow-up with PCP in: 1 week Tracy Gerard MD Dec 29, 2016 11:17
--- NOTE | 2016-12-29 11:45 | NUR ---
ROSALIA signed by sister Josselyn Rojo MSW
--- NOTE | 2016-12-29 11:58 | NUR ---
Social Work - Readiness for Discharge Data and Assessment: EMR Reviewed. Pt is on day 4 of hospitalization admitted for left sided weakness as per H&P. JESSICA met with pt and DPOA sister regarding discharge planning. Pt will be discharging home either later today or tomorrow with sen HOLLEY for RN/PT/OT. Pt lives with sister who will be there to coordinate with sen HOLLEY. SW confirmed that sister will provide transportation via POV at time of discharge. Plan: Pt will be discharged home when medically stable via POV with sen HOLLEY for RN/PT/OT NICK Dorsey
--- NOTE | 2016-12-29 13:03 | PCM.PNMED ---
Subjective Date of Service Dec 29, 2016 Subjective Initially this morning more alert and they were able to get her up to shower but now quite drowsy, sleeping but does arouse with a bit of difficulty to voice Exam Vital Signs Vital Sign - Last Date Time Temp Pulse Resp B/P Pulse Ox O2 Delivery O2 Flow Rate FiO2 12/29/16 06:15 35.8 67 16 149/80 98 Room Air Intake and Output 12/28/16 12/28/16 12/29/16 Cumulative From/Thru 15:00 23:00 07:00 12/25/16 14:02 - 12/29/16 03:38 Intake Total 1192 ml 7316 ml Output Total 600 ml 1950 ml Balance 592 ml 5366 ml Intake Oral 1072 ml 4797 ml IV Total 120 ml 2519 ml Output Urine Total 600 ml 1950 ml # Voids 12 # Bowel Movements 1 Exam General: Drowsy, arouses with a bit of difficulty to voice, when awake still shaking head side to side and speaking very little Heart: Regular Lungs: Clear anteriorly and laterally Abdomen: Soft, non-tender Extremities: No pedal edema IVs and Medications Medications Reviewed: Medications were reviewed in detail Lab and Diagnostics Result Diagram: 12/26/16 0650 12/26/16 0650 Assessment & Plan 56 YO mental disabled female, baseline unknown, BIB sister after reported decline in mentation leading her to be essentially nonverbal and minimal responses when previously she has been more alert. 1. Impaired mentation/Altered mental status - Etiology unclear, medical history not entirely known, underlying cause of pt' s chronic handicap is not clear. - CT obtained in ER noted not apparent acute cause, though was significant for cyst, which appeared slow growing. Urine and lab studies unremarkable. - Studies MRI confirmed a large subarachnoid hemorrhage with possible compression on cerebellar region of brain, EEG did not demonstrate evidence of seizure activity but could not conclusively rule out either due to patient motion. , - Lamictal level on admission undetectable - Dr. Miller Neurology consulted yesterday and his impression was: 1. Static encephalopathy. 2. Arachnoid cyst likely chronic and slow growing with mass effect on the cerebellum and cortex. 3. Transient episodes of staring, speech arrest and myoclonic type movements that is. These are strongly suspicious for an ictal etiology. - Dr. Miller Loaded her on IV Keppra yesterday with some drowsiness afterward, then drowsiness recurred today after 500 mg oral dose - He also feels she needs neurosurgery consultation and will work together with her PCP to arrange this, it is not felt to be urgent - Because of drowsiness seen today by Dr. Mcdowell who recommended decreasing Keppra dose to 250 mg twice a day and continue to observe her in the hospital - IVF discontinued as patient is taking a good amount of fluid by mouth. - Pt may require more intensive home services for DC given sister apparently being only it portfolio manager and patient's evident disability. - PT consulted for further evaluation. - Social work has been working towards getting more services and home 2. Arachnoid cyst - As noted above cyst is compressing on cerebellar region may be source of patient's progressive decline over recent weeks to months - Neurology consult with Dr. Miller as noted above 3. Mental impairment/mood disorder: - Continue home medications at this time. - Lamictal level on admission undetectable. 4. BLindness/eye condition - Continue out patient therapy/medications. Disposition: Hopefully home tomorrow if tolerates the lower dose of Keppra GI Prophylaxis: Not indicated VTE Mechanical Devices: Intermittant Pneumatic CD Resuscitation Status: DNR/DNI:Do Not Resuscitate/Intubate Tracy Gerard MD Dec 29, 2016 13:03
--- NOTE | 2016-12-29 13:49 | PROG NOTE ---
[address] [address] PROGRESS NOTE PATIENT: CASA HOLM I : 1960 MR#: [id number] ADMIT: 12/25/2016 JOB ID: [id number] NEUROLOGY PROGRESS NOTE: DATE: 12/29/2016 REQUESTING PHYSICIAN: Tracy Gerard MD, for sedation following antiepileptic medication loading. 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 The patient was subsequently evaluated by Dr. Hernandez Miller, and his full consultation note from December 25, 2016 can be reviewed in the chart. The patient had been on lamotrigine at 25 mg t.i.d.; however he loaded levetiracetam at 500 mg which caused sedation but resolved the patient's event according to her sister and todpi-ir-aydrkqns and primary caregiver, Madeleine, who is at the bedside and helps provide the history. I was called by Dr. Gerard when the patient continued to be sedated today and was barely arousable. She wondered what to do in terms of medications. I reviewed the notes from Dr. Miller, which recommended followup with him in the clinic for management of intracranial mass noted on imaging and for continued management of her spells. The patient did have an EEG completed which has not been signed off but did show normal EEG despite movement. Whether this was her typical movement, is not entirely clear. I recommended decreasing or stopping the levetiracetam. Since she does appear to have some benefit from medication, reducing it to 250 mg twice a day to reduce sedation was arrived at as a potential next step. The patient is too sedated to be cared for at home by her caregiver Madeleine. Once sedation is improved or resolved, the patient can be discharged home as planned with followup with Dr. Miller. I recommended calling the clinic on Saturday to make sure that outpatient arrangements to see Dr. Miller are in place. Please see Dr. Miller's consultation note for detailed history. REVIEW OF SYSTEMS: Cannot be obtained due to somnolence and chronic encephalopathy. ALLERGIES: No known drug allergies. MEDICATIONS: 1. Levetiracetam 500 mg b.i.d. 2. Lamotrigine 25 mg b.i.d. Plus others noted in the chart. EXAMINATION: Patient is alert to voice. Vital signs show mildly elevated blood pressure 149/80, pulse ox 67, temperature low at 35.8, pulse oximetry 98% on room air. Head: Normocephalic, atraumatic. No evidence of carotid bruits. Lungs clear to auscultation. Cardiac: Regular rate and rhythm. S1, S2 present. No edema or lesions noted in the lower extremities. NEUROLOGIC EXAMINATION: Patient alerts to voice but is quite somnolent. She states her sister Madeleine's name but does not follow commands. This is a limited examination due to sedation. Cranial nerves: The patient is legally blind. Pupils are nonresponsive. No facial asymmetry. Motor strength: The patient moves all four extremities with good strength. Deep tendon reflexes 1+ throughout. Tone intact upper and lower extremities. Coordination and gait deferred due to sedation. LABORATORY STUDIES: Platelets low at 147, white count 3.4 which is low, ALT mildly elevated at 62 down from 73 the day prior. Total protein low at 5.5. UA negative. Tox screen negative. No lamotrigine detected. RECOMMENDATION: As per the History of Present Illness, patient with myoclonus and staring spells. EEG negative for seizure focus. Her sister and POA reports intolerable sedation on levetiracetam at 500 mg b.i.d. but improvement in myoclonus and staring spells. There have never been contusive seizures. MRI imaging appears to show evidence of an arachnoid cyst which is likely congenital. No additional masses are noted. Since he patient has been too sedated on 500 mg of levetiracetam two times daily , I recommended reducing to 250 mg two times daily and following with Dr. Miller regarding his recommendations for treatment. As soon as the patient is alert enough for discharge, okay to do so. If the patient has convulsive seizures, she should return. Otherwise further treatment is to be discussed with Dr. Miller. Please call if needed. dd. Dr. Hernandez [facility]
[2016-12-29 15:20] VITALS: BP 122/68; PULSE 56; RESP 16; O2SAT 100
--- NOTE | 2016-12-29 17:30 | NUR ---
Mentation Patient out of bed this AM, up to shower and eating breakfast with family assistance. Patient agreeable to morning medications. Patient family discussed concerns of patient somnolence, concerns discussed with MD. Care is ongoing.
[2016-12-29] MEDS: DEXAMETHASONE LEFT_EYE SCH (20:07)
[2016-12-29] MEDS: NEOMYCIN LEFT_EYE SCH (20:07)
[2016-12-29] MEDS: POLYMYXIN B LEFT_EYE SCH (20:07)
[2016-12-29 22:18] VITALS: BP 113/71; PULSE 63; RESP 24; O2SAT 97
--- NOTE | 2016-12-29 23:40 | NUR ---
Mentation/Activity This evening patient appears to be more alert and active. Patients family states that she is better than she was this am, but still not at baseline and expresses concerns. Ambulated hallway X1 with SBA and FWW. Medications were given with pudding, and was able to take them with no troubles. Patient has been playing with toys and play-dough this evening as well. Will continue to monitor for increased somnolence, and continue Q 1 hour checks.
[2016-12-30] VITALS: RESP 16
[2016-12-30 02:09] VITALS: BP 144/80; PULSE 54; RESP 16; O2SAT 99
--- NOTE | 2016-12-30 05:40 | NUR ---
Transfer of care took over care for pt at 0300, pt asleep, no s/s of pain/discomfort.
[2016-12-30 07:13] VITALS: BP 138/77; PULSE 53; RESP 20; O2SAT 99
[2016-12-30] MEDS: lamoTRIgine 25 mg Tablet PO SCH (08:46)
[2016-12-30 08:53] VITALS: BP 151/73; PULSE 58; RESP 16; O2SAT 100
[2016-12-30] MEDS: Brimonidine-Timolol 5 mL Ophthalmic Solution RIGHT_EYE SCH (10:48)
[2016-12-30] MEDS ORDERED: KEPP250T PO (11:34)
--- NOTE | 2016-12-30 11:37 | PCM.DC.MED ---
Discharge Summary Date of Service Dec 30, 2016 Dates of Hospitalization Date of Hospital Admission Dec 25, 2016 at 18:19 Date of Discharge: Dec 30, 2016 Providers: Admitting Physician: Sabino Shay DO Primary Care Physician: Xiao Juárez Attending Physician: Sabino Shay DO Diagnosis at Time of Discharge Diagnosis at Time of Discharge Static encephalopathy. Arachnoid cyst likely chronic and slow growing with mass effect on the cerebellum and cortex. Transient episodes of staring, speech arrest and myoclonic type movements that is. These are strongly suspicious for an ictal etiology Mental impairment/mood disorder Brief History 56 YO F with profound mental disabilities in addition to blindness presenting from home accompanied by sister for an acute on chornic delcine in functioning. Sister notes for last few months pt has demonstrated more jerky/spastic motions of arms, perhaps more difficulties with ambulation. She has brought this up to PCP on numerous occasions, but generally pt is not as symptomatic in doctors office. There has kenneth neurology consult placed, but this is still pending, not scheduled until February which was earliest date. In recent days the changes have become more pronouced. Pt having progressive difficulties with ambulation, this morning finally unable to walk down steps. Arms more spastic. Pt used to be much more verbally expressive, sister notes now if seems she is trying to say something, but is unable. She also appears more lethargic and sedate. She had been drinking less water/fluids as well, perhaps for past few weeks, though food intake is still good. Sister denies any evident chills/sweat, no reported fever. Pt stooling harder than usual but not constipated. Voiding normally, though maybe more dark. Hospital Course 56 YO mental disabled female, baseline unknown, BIB sister after reported decline in mentation leading her to be essentially nonverbal and minimal responses when previously she has been more alert. 1. Impaired mentation/Altered mental status - Etiology unclear, medical history not entirely known, underlying cause of pt' s chronic handicap is not clear. - CT obtained in ER noted not apparent acute cause, though was significant for cyst, which appeared slow growing. Urine and lab studies unremarkable. - Studies MRI confirmed a large subarachnoid hemorrhage with possible compression on cerebellar region of brain, EEG did not demonstrate evidence of seizure activity but could not conclusively rule out either due to patient motion. , - Lamictal level on admission undetectable - Dr. Miller Neurology consulted yesterday and his impression was: 1. Static encephalopathy. 2. Arachnoid cyst likely chronic and slow growing with mass effect on the cerebellum and cortex. 3. Transient episodes of staring, speech arrest and myoclonic type movements that is. These are strongly suspicious for an ictal etiology. - Dr. Miller Loaded her on IV Keppra yesterday with some drowsiness afterward, then drowsiness recurred today after 500 mg oral dose - He also feels she needs neurosurgery consultation and will work together with her PCP to arrange this, it is not felt to be urgent - Because of drowsiness seen today by Dr. Mcdowell who recommended decreasing Keppra dose to 250 mg twice a day and continue to observe her in the hospital - Following day (day of discharge) her drowsiness has cleared - IVF discontinued as patient is taking a good amount of fluid by mouth. - Pt may require more intensive home services for DC given sister apparently being only senior vice president & general counsel and patient's evident disability. - PT consulted for further evaluation. - Social work has been working towards getting more services and home 2. Arachnoid cyst - As noted above cyst is compressing on cerebellar region may be source of patient's progressive decline over recent weeks to months - Neurology consult with Dr. Miller as noted above 3. Mental impairment/mood disorder: - Continue home medications at this time. - Lamictal level on admission undetectable. 4. BLindness/eye condition - Continue out patient therapy/medications. a Exam Vital Signs (Last) Date Time Temp Pulse Resp B/P Pulse Ox O2 Delivery O2 Flow Rate FiO2 12/30/16 08:53 35.7 58 16 151/73 100 Room Air Exam Ambulating in snyder with a walker and her sister at her side. Later in her room she is alert still shaking her head side to side, heart is regular and lungs are clear. Test 12/25/16 14:20 12/25/16 17:00 12/26/16 06:50 12/29/16 13:10 Lactic Acid Level 0.9mmol/L (0.4-2.0) Thyroid Stimulating Hormone (TSH) 2.670uIU/mL (0.450-4.500) Hold Chapman Top Tube Received (Received) Urine Color Yellow (YELLOW) Urine Appearance Clear (CLEAR,HAZY) Urine pH 5.5 (5.0-8.0) Urine Specific [place] 1.015 (1.003-1.035) Urine Protein Negativemg/dL (NEG,TRACE) Urine Glucose (UA) Negativemg/dL (NEGATIVE) Urine Ketones Negativemg/dL (NEGATIVE) Urine Occult Blood Small (NEGATIVE) Urine Nitrite Negative (NEGATIVE) Urine Bilirubin Negative (NEGATIVE) Urine Urobilinogen Normalmg/dL (NORMAL) Urine Leukocyte Esterase Negative (NEGATIVE) Urine RBC 0-2/hpf (0-2) Urine WBC 0-5/hpf (0-5) Urine Epithelial Cells None/hpf (NONE-MOD) Urine Crystals None seen (NONE SEEN) Urine Bacteria Few/hpf (NONE-FEW) Urine Hyaline Casts None/lpf (NONE) Urine Granular Casts None seen (NONE SEEN) Urine Waxy Casts None seen (NONE SEEN) Urine Red Blood Cell Casts None seen (NONE SEEN) Urine White Blood Cell Casts None seen (NONE SEEN) Urine Mucus None seen (None Seen) Urine Trichomonas None seen (NONE SEEN) Urine Yeast None (NONE SEEN) Urinalysis Comment None Urine Culture Reflexed Not indicated White Blood Count 3.4th/mm3 (3.8-10.1) Red Blood Count 4.37mil/mm3 (3.90-5.20) Hemoglobin 12.9g/dL (12.0-15.6) Hematocrit 36.7% (35.0-46.0) Mean Corpuscular Volume 84.0fL (81-100) Mean Corpuscular Hemoglobin 29.5pg (27.0-35.0) Mean Corpuscular Hemoglobin Concent 35.1% (32.0-37.0) Red Cell Distribution Width 13.4% (12.3-15.4) Platelet Count 147bil/L (150-400) Neutrophils (%) (Auto) 37.7% (40-74) Lymphocytes (%) (Auto) 50.4% (14-46) Monocytes (%) (Auto) 9.6% (4-12) Eosinophils (%) (Auto) 2.0% (0-5) Basophils (%) (Auto) 0.3% (0-3) Sodium Level 141mEq/L (134-144) Potassium Level 4.3mEq/L (3.5-5.2) Chloride Level 104mEq/L (97-108) Carbon Dioxide Level 26mmol/L (18-29) Blood Urea Nitrogen 16mg/dL (6-24) Creatinine 0.88mg/dL (0.57-1.00) Estimat Glomerular Filtration Rate 95mL/min (>59) Glucose Level 83mg/dL (60-99) Calcium Level 8.9mg/dL (8.5-10.1) Total Bilirubin 0.3mg/dL (0.0-1.2) Aspartate Amino Transf (AST/SGOT) 33U/L (0-50) Alanine Aminotransferase (ALT/SGPT) 62U/L (0-32) Alkaline Phosphatase 94U/L (25-150) Total Protein 5.5g/dL (6.4-8.4) Albumin 3.5g/dL (3.4-5.0) Lamotrigine (Lamictal) Level None detectedug/mL Discharge Medications Discharge Medications Brimonidine Tartrate/Timolol (Combigan Eye Drops) 5 Ml Drops 1 GTT RIGHT_EYE BID (Reported) Clonazepam (Clonazepam) 0.5 Mg Tablet 0.5 MG PO BID-TID (Reported) Dorzolamide (Dorzolamide) 10 Ml Drops 1 GTT RIGHT_EYE BID (Reported) Fluoxetine (Fluoxetine) 20 Mg Capsule 20 MG PO QPM (Reported) Lamotrigine (Lamotrigine) 25 Mg Tablet 25 MG PO BID (Reported) Latanoprost (Latanoprost) 2.5 Ml Drops 1 GTT RIGHT_EYE DAILY (Reported) Levetiracetam (Keppra) 250 Mg Tablet 250 MG PO BID Prescribed by: KENYETTA HANDY MD Levothyroxine (Levothyroxine) 75 Mcg Tablet 75 MCG PO DAILY (Reported) Curt/Polymyx B Sulf/Dexameth (Mznexc-Usovr-Xmgzhgu Eye Ointm) 3.5 Gm Oint...g. 1 APPLIC LEFT_EYE HS (Reported) Olanzapine (Olanzapine) 10 Mg Tablet 10 MG PO HS (Reported) Followup Plan Discharge Diet: No restrictions Discharge Activity: No restrictions Follow-up with PCP in: 1 week Kenyetta Handy MD Dec 30, 2016 11:37
--- NOTE | 2016-12-30 11:42 | NUR ---
Social Work: Discharge D: Pt discussed in am rounds with MD. Pt is medically stable for discharge home with her sister. CHIEF SCIENTIFIC OFFICER met with pt and sister/guardian at bedside to confirm discharge plan and assess for unmet needs. Pt's sister agrees with plan to take pt home with supportive services from [facility] for RN, PT, OT. CHIEF SCIENTIFIC OFFICER has obtained F2F orders and faxed them to [facility]. t/c to Jose Stuart with [facility] to notify of pt's discharge. Left message providing information. Pt's sister denies any other needs at discharge. A: Pt who is dependent on her sister as primary caregiver. P: Pt to discharge home with her sister who is / caregiver and [facility] for RN, PT, OT. NICK De Guzman
--- NOTE | 2016-12-30 12:18 | NUR ---
E-PRESCRIPTION Verified with Jade Thayer in [facility]. They have received the patients prescription electronically. Patients sister was made aware of this.
--- NOTE | 2016-12-30 12:40 | NUR ---
DISCHARGE Via FELDT scale patients pain level is 0/10. Tolerating her diet and liquids PO. No nausea/emesis noted. Denies SOB. Patient has been ambulating in the hallway with her sister and brother in law. Tolerating activity well. Patient has not been lethargic since her dose was adjusted per her sister. She has been awake since this morning and has been doing all her ADL's with her sister. IV saline lock d/cd. Discharge instructions and care notes was given to the patient's sister. Verified with Jade mccoy [id number] has been received for [place]. Her sister (DPOA)-Gianna verbalized understanding RE: Discharge instructions. [facility] has been set-up for them by JESSICA. Discharged to home with her sister and all her personal belongings. (Copy of D/C is in the chart).
== END 2016-12-30 12:39 | disposition home or self-care (01) | DRG 72 ==
LOC: SED 14:00 → OBSVTOIN 18:19 → OSC 18:19
PROVIDERS: ADMIT Family Medicine; ATTEND Family Medicine
PROC: 4A00X4Z Measurement of Central Nervous Electrical Activity, External Approach (ICD-10-PCS; principal; 2016-12-27)
DX: G93.40 Encephalopathy, unspecified (principal); F79 Unspecified intellectual disabilities; G93.0 Cerebral cysts; H54.0 Blindness, both eyes; Z66 Do not resuscitate; Z91.19 Patient's noncompliance with other medical treatment and regimen